=== PATIENT | male | born 1945 | race Caucasian/White ===

== ENCOUNTER 2017-05-25 10:49 | Inpatient (IN) | payer MEDICARE, BC ==
[2017-05-25] MEDS ORDERED: Sodium Chloride 0.9% 1,000 ML IV STA (11:48)
--- NOTE | 2017-05-25 12:02 | ED PDOC ---
Arrival/HPI - General Chief Complaint: Syncope Time Seen by Provider: 05/25/17 11:28 Historian: Patient, Spouse - History of Present Illness Narrative History of Present Illness (Text): 05/25/17 11:32 A 71 year old male, whose past medical history includes COPD (on 2.5 Liter of oxygen at home), Atrial fibrillation (on Coumadin and Digoxin), hypertension, pacemaker/AICD, and colon CA in remission, presents to the emergency department for evaluation of rectal bleeding for the past 3 days. Patient reports 4 days ago he was seen by his certified residential medication aide, who preformed a colonoscopy. Dr. Guido found polyps, which where removed and patient was instructed to hold on some of his pain medication. Patient reports that even he had back pain and without thinking he took his Naproxen that night. Patient has been off his coumadin the past two days. Patient notes the bleeding has been consistent for the past 3 days. Director Strategy was called who suggested to the patient come into the emergency department for further evaluation. Patient notes having bloody diarrhea, generalized weakness and lightheadedness. He states earlier today he was sleep on his couch and got up but felt dizzy and fell, hitting his head and sustained a small laceration the the left eye lid. Patient has some shortness of breath, consistent with baseline COPD but denies any fever, chills , abdominal pain, nausea, vomiting, or any other complaints at this time. Patient cannot recall when he last got a tetanus shot. PMD: Dr. Hamlin Time/Duration: Other (3 days) Symptom Onset: Sudden Symptom Course: Unchanged Quality: Other Activities at Onset: Rest Context: Home Past Medical History - Provider Review Nursing Documentation Reviewed: Yes - Cardiac Hx Cardiac Disorders: Yes Hx Hypertension: Yes Hx Pacemaker: Yes - Pulmonary Hx Respiratory Disorders: Yes Hx Chronic Obstructive Pulmonary Disease (COPD): Yes Hx Emphysema: Yes - Neurological Hx Neurological Disorder: No - HEENT Hx HEENT Disorder: No - Renal Hx Renal Disorder: No - Endocrine/Metabolic Hx Endocrine Disorders: No - Hematological/Oncological Hx Blood Disorders: No - Integumentary Hx Dermatological Disorder: No - Musculoskeletal/Rheumatological Hx Musculoskeletal Disorders: No - Gastrointestinal Hx Gastrointestinal Disorders: Yes - Genitourinary/Gynecological Hx Genitourinary Disorders: No - Psychiatric Hx Psychophysiologic Disorder: No Hx Substance Use: No - Surgical History Hx Cardiac Catheterization: Yes Hx Coronary Stent: Yes Other/Comment: colon resection/colonoscopy Family/Social History - Physician Review Nursing Documentation Reviewed: Yes Family/Social History: Unknown Family HX Smoking Status: Former Smoker Hx Alcohol Use: Yes ("twice per week") Hx Substance Use: No Allergies/Home Meds Allergies/Adverse Reactions: Allergies No Known Allergies Allergy (Verified 05/25/17 10:55) Home Medications: Home Meds Medication Instructions Recorded Confirmed Budesonide [Pulmicort Respules] 1 inh INH BID 05/25/17 05/25/17 Digoxin [Lanoxin] 0.25 mg PO DAILY 05/25/17 05/25/17 Dutasteride [Avodart] 0.5 mg PO DAILY 05/25/17 05/25/17 Fenofibrate [Fenofibrate] 54 mg PO DAILY 05/25/17 05/25/17 Formoterol Fumarate [Perforomist] 1 inh INH BID 05/25/17 05/25/17 Furosemide [Lasix] 40 mg PO DAILY 05/25/17 05/25/17 Metoprolol Tartrate [Lopressor] 25 mg PO DAILY 05/25/17 05/25/17 Simvastatin [Simvastatin] 40 mg PO DAILY 05/25/17 05/25/17 Tamsulosin [Flomax] 0.4 mg PO DAILY 05/25/17 05/25/17 Tiotropium [Spiriva] 1 inh INH DAILY 05/25/17 05/25/17 Warfarin [Coumadin] 1 mg PO .[id number] 05/25/17 05/25/17 Warfarin [Coumadin] 2 mg PO .MONFRI 05/25/17 05/25/17 Review of Systems - Physician Review All systems were reviewed & negative as marked: Yes - Review of Systems Constitutional: Fatigue. absent: Fevers Respiratory: SOB Cardiovascular: absent: Chest Pain Gastrointestinal: Diarrhea, Hematochezia. absent: Abdominal Pain, Constipation , Nausea, Vomiting Neurological: Other (lightheadedness) Physical Exam Vital Signs Reviewed: Yes Temperature: Afebrile Blood Pressure: Normal Pulse: Regular Respiratory Rate: Normal Appearance: Positive for: Well-Appearing, Non-Toxic, Comfortable Pain Distress: None Mental Status: Positive for: Alert and Oriented X 3 Finger Stick Blood Glucose: 149 - Systems Exam Head: Present: Normocephalic, Laceration (lateral left eye laceration approximately 1-2 cm ). No: Tenderness, Contusion Pupils: Present: PERRL Extroacular Muscles: Present: EOMI Conjunctiva: Present: Normal Mouth: Present: Moist Mucous Membranes Pharnyx: Present: Normal. No: ERYTHEMA, EXUDATE Neck: Present: Normal Range of Motion Respiratory/Chest: Present: Clear to Auscultation, Good Air Exchange, Decreased Breath Sounds (slightly decreased). No: Respiratory Distress, Accessory Muscle Use Cardiovascular: Present: Regular Rate and Rhythm, Normal S1, S2. No: Murmurs Abdomen: Present: Normal Bowel Sounds. No: Tenderness, Distention, Peritoneal Signs Rectal: Present: Gross Blood Back: Present: Normal Inspection Upper Extremity: Present: Normal Inspection. No: Cyanosis, Edema Lower Extremity: Present: Normal Inspection. No: Edema Neurological: Present: GCS=15, CN II-XII Intact, Speech Normal, Motor Func Grossly Intact Skin: Present: Warm, Dry, Normal Color. No: Rashes Psychiatric: Present: Alert, Oriented x 3, Normal Insight, Normal Concentration Medical Decision Making ED Course and Treatment: 05/25/17 11:32 Impression: A 71 year old male with rectal bleeding, starting two days post-polypectomy. Patient with syncopal episode this morning. Vitals are unremarkable. Differential Diagnosis included but are not limited to: GI bleed Plan: -- Head CT -- Chest X-ray -- Labs -- Urinalysis -- IV Fluids and TDAP Vaccine -- Reassess and disposition Progress Notes: 05/25/17 11:56 Case discussed with Rafa Bell, from [employer], who states he will come to the emergency department in 1-2 hours to investigate the pacemaker. 05/25/17 12:[address] Guido, who states to order a GI Bleeding Scan. 05/25/17 13:03 Rafa Bell present in emergency department. 05/25/17 14:49 Patient's Hgb is 11.4; EKG is abnormal but no old for comparison. Troponin is negative. No chest pain. 05/25/17 14:55 Patient will need observation on tele, bleeding scan results to be followed. Case discussed with Dr. Skinner, who is now following Dr. Hamlin's patients. Patient to be place on his service. - Lab Interpretations Lab Results: 05/25/17 12:00 05/25/17 12:00 Lab Results 05/25/17 13:00: Blood Type Confirm A POSITIVE 05/25/17 12:53: Urine Color Yellow, Urine Appearance Clear, Urine pH 6.0, Ur Specific [place] 1.020, Urine Protein Negative, Urine Glucose (UA) Negative, Urine Ketones Negative, Urine Blood Negative, Urine Nitrate Negative, Urine Bilirubin Negative, Urine Urobilinogen 0.2, Ur Leukocyte Esterase Trace H, Urine RBC 0 - 2, Urine WBC 2 - 5, Ur Epithelial Cells 0 - 2, Amorphous Sediment Few, Urine Bacteria Many 05/25/17 12:00: Digoxin < 0.4 L 05/25/17 12:00: Blood Type A POSITIVE, Antibody Screen Negative, Crossmatch See Detail, BBK History Checked No verified bt 05/25/17 12:00: Sodium 137, Potassium 4.1, Chloride 103, Carbon Dioxide 28, Anion Gap 10, BUN 21, Creatinine 1.0, Est GFR ( Amer) > 60, Est GFR (Non- Af Amer) > 60, Random Glucose 123 H, Calcium 9.1, Total Bilirubin 0.3, AST 25, ALT 26, Alkaline Phosphatase 32 L, Lactate Dehydrogenase 371, Total Creatine Kinase 65, Troponin I < 0.01, Total Protein 5.9, Albumin 3.3, Globulin 2.6, Albumin/Globulin Ratio 1.3 05/25/17 12:00: PT 14.8 H, INR 1.37 H, APTT 24.9 05/25/17 12:00: WBC 15.2 H, RBC 3.81, Hgb 11.4 L, Hct 33.7 L, MCV 88.5, MCH 29.9 , MCHC 33.8, RDW 13.8, Plt Count 227, MPV 9.2, Gran % 81.0 H, Lymph % (Auto) 12.1 L, [place] % (Auto) 6.3 H, Eos % (Auto) 0.3 L, Baso % (Auto) 0.3, Gran # 12.31 H, Lymph # 1.8, [place] # 1.0 H, Eos # 0.1, Baso # 0.04 I have reviewed the lab results: Yes - RAD Interpretation Radiology Orders: 05/25/17 11:46 CHEST PORTABLE [RAD] Stat 05/25/17 11:47 Brain [HEAD W/O CONTRAST] [CT] Stat 05/25/17 12:17 GI BLEEDING SCAN W/ FLOW [NM] Stat - EKG Interpretation EKG Interpretation (Text): 05/25/17 14:52 NSR @ 82 with NSIVCD with inferolateral T wave inversions, LBBB but no old for comparison; QRS is 128 - Medication Orders Current Medication Orders: Sodium Chloride (Sodium Chloride 0.9%) 1,000 mls @ 250 mls/hr IV .Q4H STA Stop: 05/25/17 15:47 Last Admin: 05/25/17 12:24 Dose: 250 mls/hr Polyethylene Glycol/Electrolytes (Golytely) 4,000 ml PO ONCE ONE Stop: 05/25/17 17:01 Discontinued Medications Tetanus/Reduced Diphtheria/Acell Pertussis (Boostrix Vaccine Inj) 0.5 ml IM .ONCE ONE Stop: 05/25/17 12:22 - Scribe Statement The provider has reviewed the documentation as recorded by the Tejaibcharlette Monsivais Provider Scribe Attestation: All medical record entries made by the Scribe were at my direction and personally dictated by me. I have reviewed the chart and agree that the record accurately reflects my personal performance of the history, physical exam, medical decision making, and the department course for this patient. I have also personally directed, reviewed, and agree with the discharge instructions and disposition. Disposition/Present on Arrival - Present on Arrival Any Indicators Present on Arrival: No History of DVT/PE: No History of Uncontrolled Diabetes: No Urinary Catheter: No History of Decub. Ulcer: No History Surgical Site Infection Following: None - Disposition Have Diagnosis and Disposition been Completed?: Yes Diagnosis: Syncope, Rectal bleeding Disposition: HOSPITALIZED Disposition Time: 14:40 Patient Plan: Observation, Telemetry Condition: FAIR Discharge Instructions (ExitCare): Syncope (ED) Referrals: Mauricio Hamlin Jr., MD [Primary Care Provider] - Follow up with primary
[2017-05-25] MEDS ORDERED: TDAP Vaccine 0.5 mL Syr IM ONE ×2 (12:21→18:30)
[2017-05-25 12:26] LABS: ADD MANUAL DIFF? NO
[2017-05-25 12:41] LABS: BASO # 0.04 K/mm3 (0.0-2.0); BASO % 0.3 % (0.0-3.0); EOS # 0.1 (0.0-0.7); EOS % 0.3 % (1.5-5.0); GRAN # 12.31 (1.4-6.5); HEMATOCRIT 33.7 % (42.0-52.0); LYMPH # 1.8 (1.2-3.4); LYMPH % 12.1 % (22.0-35.0); MEAN CELL VOLUME 88.5 fL (80.0-105.0); MEAN CORPUSCULAR HEMOGLOBIN 29.9 pg (25.0-35.0); MEAN CORPUSCULAR HGB CONC 33.8 g/dl (31.0-37.0); MEAN PLATELET VOLUME 9.2 fl (7.0-11.0); MONO % 6.3 % (1.0-6.0); PLATELET COUNT 227 10^3/uL (120.0-450.0); RED CELL DISTRIBUTION WIDTH 13.8 % (11.5-14.5); WHITE BLOOD COUNT 15.2 10^3/ul (4.5-11.0)
[2017-05-25 12:49] LABS: INR 1.37 (0.93-1.08); PARTIAL THROMBOPLASTIN TIME 24.9 Seconds (23.7-30.8)
[2017-05-25 12:53] LABS: ALB/GLOB RATIO 1.3 (1.1-1.8); ALKALINE PHOSPHATASE 32 U/L (38-133); ALT/SGPT 26 U/L (7-56); AST/SGOT 25 U/L (15-59); BILIRUBIN,TOTAL 0.3 mg/dL (0.2-1.3); BLOOD UREA NITROGEN 21 mg/dL (7-21); CALCIUM 9.1 mg/dL (8.4-10.5); CARBON DIOXIDE 28 mmol/L (21-33); CHLORIDE 103 mmol/L (98-107); GFR AFRICAN-AMERICAN > 60; GLUCOSE,RANDOM 123 mg/dL (70-110); POTASSIUM 4.1 mmol/L (3.6-5.0); SODIUM 137 mmol/L (132-148); TOTAL PROTEIN 5.9 g/dL (5.8-8.3)
[2017-05-25 12:56] LABS: URINE BILIRUBIN NEGATIVE (NEGATIVE); URINE BLOOD NEGATIVE (NEGATIVE); URINE GLUCOSE (UA) NEGATIVE (NEGATIVE); URINE KETONE NEGATIVE (NEGATIVE); URINE LEUKOCYTE ESTERASE TRACE Leu/uL (NEGATIVE); URINE PROTEIN NEGATIVE mg/dL (<30 mg/dL); URINE UROBILINOGEN 0.2 E.U./dL (<1 E.U./dL)
[2017-05-25 12:59] LABS: URINE APPEARANCE CLEAR (CLEAR); URINE COLOR YELLOW (YELLOW)
[2017-05-25 13:03] LABS: TROPONIN I < 0.01 ng/mL
[2017-05-25 13:08] LABS: URINE AMORPHOUS SEDIMENT FEW; URINE BACTERIA MANY (NEG); URINE EPITHELIAL CELLS 0 - 2 /hpf (0-5); URINE RBC 0 - 2 /hpf (0-2)
--- NOTE | 2017-05-25 16:01 | CT ---
PROCEDURE: CT HEAD WITHOUT CONTRAST. HISTORY: syncope; hit head; on coumadin COMPARISON: None available. TECHNIQUE: Axial computed tomography images were obtained through the head/brain without intravenous contrast. Radiation dose: Total exam DLP = 789 mGy-cm. This CT exam was performed using one or more of the following dose reduction techniques: Automated exposure control, adjustment of the mA and/or kV according to patient size, and/or use of iterative reconstruction technique. FINDINGS: HEMORRHAGE: No intracranial hemorrhage. BRAIN: No mass effect or edema. No atrophy or chronic microvascular ischemic changes. VENTRICLES: Unremarkable. No hydrocephalus. CALVARIUM: Unremarkable. PARANASAL SINUSES: Unremarkable as visualized. No significant inflammatory changes. MASTOID AIR CELLS: Unremarkable as visualized. No inflammatory changes. OTHER FINDINGS: None. IMPRESSION: No acute findings
--- NOTE | 2017-05-25 16:34 | NM ---
PROCEDURE: Gastrointestinal bleeding study HISTORY: lower GI Bleed post-polypectomy COMPARISON: Not available TECHNIQUE: 19.0 mCi of technetium 99 M ultra tagged 10 8 RBCs were administered intravenously. Sequential flow and static images were obtained up to 1 hour post administration. FINDINGS: There is focal activity in the right upper quadrant of the abdomen, likely in the hepatic flexure of the colon. This is seen to spread slightly along the expected course of the flexure, both proximally and distally. There is focal activity seen in the inferior pelvis. This is in the expected location of the bladder or rectosigmoid colon. This does not spread along the expected course of the sigmoid colon and may represent bladder activity. This should correlate with hematuria on catheterization. Please correlate. Alternatively, this may represent sigmoid colon activity. IMPRESSION: Abnormal activity in what is most likely the hepatic flexure of the colon. Abnormal activity in the pelvis which may correspond to bladder activity, versus rectosigmoid colon. Please correlate with bladder catheterization to determine if there is hematuria.
[2017-05-25] MEDS ORDERED: Peg-Electrolyte Oral Soln 4L (Golytely) PO ONE (17:00)
[2017-05-25] MEDS ORDERED: FENOFIBRATE 54 MG PO SCH (17:15)
--- NOTE | 2017-05-25 17:22 | RAD ---
HISTORY: syncope; generalized weakness COMPARISON: No prior. FINDINGS: LUNGS: There is an extensive lucency in the left upper lobe that is most likely due to an emphysematous bulla. There is no lung edge to suggest pneumothorax. There are no prior studies. There is linear apical scarring on the right. PLEURA: No significant pleural effusion identified, no pneumothorax apparent. CARDIOVASCULAR: Normal. OSSEOUS STRUCTURES: No significant abnormalities. VISUALIZED UPPER ABDOMEN: Normal. OTHER FINDINGS: None. IMPRESSION: There is an extensive lucency in the left upper lobe that is most likely due to an emphysematous bulla. There is no lung edge to suggest pneumothorax. There are no prior studies. There is linear apical scarring on the right.
[2017-05-25 17:37] LABS: CHOLESTEROL 119 mg/dL (130-200)
[2017-05-25] MEDS ORDERED: FORMOTEROL FUMARATE INH SCH (18:00)
[2017-05-25] MEDS ORDERED: Budesonide 0.5 mg/2 ml Inhal Susp UD INH SCH (18:00)
[2017-05-25] MEDS: Digoxin 250 mcg (0.25 mg) Tab PO SCH (19:12)
[2017-05-25] MEDS: Tiotropium 18 mcg Cap For Inhalation INH SCH (19:34)
[2017-05-25] MEDS: Budesonide 0.25 mg/2 ml Inhal Susp UD IH SCH (19:52)
[2017-05-25 20:08] LABS: ADD MANUAL DIFF? NO
[2017-05-25 20:10] LABS: BASO # 0.04 K/mm3 (0.0-2.0); BASO % 0.2 % (0.0-3.0); EOS # 0.1 (0.0-0.7); EOS % 0.5 % (1.5-5.0); GRAN # 13.24 (1.4-6.5); GRAN % 77.5 % (50.0-68.0); HEMATOCRIT 30.2 % (42.0-52.0); LYMPH # 2.8 (1.2-3.4); LYMPH % 16.4 % (22.0-35.0); MEAN CELL VOLUME 88.3 fL (80.0-105.0); MEAN CORPUSCULAR HEMOGLOBIN 29.8 pg (25.0-35.0); MEAN CORPUSCULAR HGB CONC 33.8 g/dl (31.0-37.0); MEAN PLATELET VOLUME 8.9 fl (7.0-11.0); MONO # 0.9 (0.1-0.6); MONO % 5.4 % (1.0-6.0); PLATELET COUNT 246 10^3/uL (120.0-450.0); RED CELL DISTRIBUTION WIDTH 13.8 % (11.5-14.5); WHITE BLOOD COUNT 17.1 10^3/ul (4.5-11.0)
[2017-05-25 21:45] VITALS: BMI 27.3
[2017-05-25] MEDS ORDERED: Pneumococcal 23-Valent Vaccine IM ONE (21:45)
--- NOTE | 2017-05-25 22:13 | CARD ---
APPROVED REPORT EKG Measurement Heart [id number] <Conclusion> Normal sinus rhythm Nonspecific intraventricular block T wave abnormality, consider inferolateral ischemia Abnormal ECG
[2017-05-26 07:15] LABS: ADD MANUAL DIFF? NO
[2017-05-26 07:28] LABS: BASO # 0.03 K/mm3 (0.0-2.0); BASO % 0.2 % (0.0-3.0); EOS # 0.1 (0.0-0.7); EOS % 0.9 % (1.5-5.0); GRAN # 9.73 (1.4-6.5); GRAN % 75.1 % (50.0-68.0); LYMPH # 2.1 (1.2-3.4); LYMPH % 16.1 % (22.0-35.0); MEAN CELL VOLUME 87.9 fL (80.0-105.0); MEAN CORPUSCULAR HEMOGLOBIN 29.4 pg (25.0-35.0); MEAN CORPUSCULAR HGB CONC 33.5 g/dl (31.0-37.0); MEAN PLATELET VOLUME 8.9 fl (7.0-11.0); MONO % 7.7 % (1.0-6.0); PLATELET COUNT 195 10^3/uL (120.0-450.0); RED CELL DISTRIBUTION WIDTH 13.9 % (11.5-14.5)
[2017-05-26 07:32] LABS: INR 1.25 (0.93-1.08); PARTIAL THROMBOPLASTIN TIME 23.8 Seconds (23.7-30.8)
[2017-05-26 07:33] LABS: ALB/GLOB RATIO 1.2 (1.1-1.8); ALKALINE PHOSPHATASE 24 U/L (38-133); ALT/SGPT 24 U/L (7-56); AST/SGOT 25 U/L (15-59); BILIRUBIN,DIRECT 0.2 mg/dL (0.0-0.4); BILIRUBIN,TOTAL 0.5 mg/dL (0.2-1.3); BLOOD UREA NITROGEN 16 mg/dL (7-21); CALCIUM 8.3 mg/dL (8.4-10.5); CARBON DIOXIDE 28 mmol/L (21-33); CHLORIDE 106 mmol/L (98-107); GFR AFRICAN-AMERICAN > 60; GLUCOSE,RANDOM 91 mg/dL (70-110); MAGNESIUM 1.5 mg/dL (1.7-2.2); POTASSIUM 4.2 mmol/L (3.6-5.0); SODIUM 139 mmol/L (132-148); TOTAL PROTEIN 4.7 g/dL (5.8-8.3)
[2017-05-26] MEDS: Arformoterol 15 mcg/2 ml Inh Sol IH SCH ×2 (07:45→19:53)
[2017-05-26] MEDS ORDERED: Sodium Chloride 0.9% 1,000 ML IV SCH (07:45)
[2017-05-26] MEDS: Levalbuterol 1.25 MG/3 ML Inhal Soln UD IH SCH ×3 (07:45→19:53)
[2017-05-26] MEDS: Budesonide 0.25 mg/2 ml Inhal Susp UD IH SCH ×2 (07:46→19:53)
[2017-05-26 07:54] LABS: HEMATOCRIT 23.9 % (42.0-52.0)
--- NOTE | 2017-05-26 08:07 | CP.PCM.CON ---
History of Present Illness - History of Present Illness History of Present Illness: GI consult for Dr. Guido A 71 year old male, whose past medical history includes COPD (on 2.5 Liter of oxygen at home), Atrial fibrillation (on Coumadin and Digoxin), hypertension, pacemaker/AICD, and colon CA in remission, presents to the emergency department for evaluation of rectal bleeding for the past 4 days since Wednesday. Patient had colonoscopy and polypectomy on Wednesday (POD5). Pt started Coumadin same day and discontinued 4 days ago when he started bleeding. Patient reports that he had back pain and took Naproxen on Wednesday. Patient notes the bleeding has been consistent for the past 4 days. Patient notes having 5,6 bouts of bloody diarrhea a day, generalized weakness and lightheadedness. He states felt dizzy and fell, hitting his head and sustained a small laceration the the left eye lid. Patient has some shortness of breath, consistent with baseline COPD but denies any fever, chills, abdominal pain, nausea, vomiting, or any other complaints at this time. Patient cannot recall when he last got a tetanus shot. CT of the head was negative for acute process and bleeding scan shows blood on hepatic flexure and pelvic/sigmoid area. INR is 1.25 today and Hgb decreased to 8 from 10 yesterday. Pt is receiving PRBC and scheduled for colonoscopy today. PMH: COPD, polyps, Afib on coumadin, Colon CA. PMD: Dr. Hamlin Review of Systems - Review of Systems Review of Systems: See HPI Past Patient History - Past Social History Smoking Status: Former Smoker - CARDIAC Hx Cardiac Disorders: Yes Hx Cardia Arrhythmia: Yes (a fib) Hx Hypertension: Yes Hx Pacemaker: Yes Hx Peripheral Edema: Yes (ble +1) - PULMONARY Hx Respiratory Disorders: Yes Hx Chronic Obstructive Pulmonary Disease (COPD): Yes (home o2) Hx Emphysema: Yes - NEUROLOGICAL Hx Neurological Disorder: No - HEENT Hx HEENT Problems: No - RENAL Hx Chronic Kidney Disease: No - ENDOCRINE/METABOLIC Hx Endocrine Disorders: No - HEMATOLOGICAL/ONCOLOGICAL Hx Cancer: Yes (colon ca dx 2000/colon resection) - INTEGUMENTARY Other/Comment: laceration left eyelid - MUSCULOSKELETAL/RHEUMATOLOGICAL Hx Musculoskeletal Disorders: Yes (joint pain) Hx Falls: Yes (syncopal episode today fell hit head) - GASTROINTESTINAL Hx Gastrointestinal Disorders: Yes - GENITOURINARY/GYNECOLOGICAL Hx Prostate Problems: Yes (enlarged on flomax) - PSYCHIATRIC Hx Psychophysiologic Disorder: No Hx Substance Use: No - SURGICAL HISTORY Hx Cardiac Catheterization: Yes Hx Coronary Stent: Yes Other/Comment: colon resection/colonoscopy 4 days ago polyps found and removed, abd hernia repair Meds Allergies/Adverse Reactions: Allergies Allergy/AdvReac Type Severity Reaction Status Date / Time No Known Allergies Allergy Verified 05/25/17 10:55 - Medications Medications: Current Medications Arformoterol Tartrate (Brovana) 15 mcg IH [id number] [facility] Last Admin: 05/26/17 07:45 Dose: 15 mcg Atorvastatin Calcium (Lipitor) 20 mg PO DAILY [facility] Budesonide (Pulmicort Respules) 0.25 mg IH BIDRESP [facility] Last Admin: 05/26/17 07:46 Dose: 0.25 mg Digoxin (Lanoxin) 0.25 mg PO DAILY [facility] Last Admin: 05/25/17 19:12 Dose: 0.25 mg Fenofibrate (Tricor) 48 mg PO DAILY [facility] Sodium Chloride (Sodium Chloride 0.9%) 1,000 mls @ 80 mls/hr IV .[id number] [facility] Metronidazole (Flagyl) 500 mg in 100 mls @ 100 mls/hr IVPB Q8 [facility] PRN Reason: Protocol Piperacillin Sod/Tazobactam Sod (Zosyn 3.375 In Ns 100ml) 100 mls @ 200 mls/hr IVPB Q8H [facility] PRN Reason: Protocol Stop: 06/02/17 08:14 Magnesium Sulfate 2 gm/ Sodium (Chloride) 104 mls @ 102 mls/hr IVPB Q3H [facility] Stop: 05/26/17 11:47 Levalbuterol HCl (Xopenex) 1.25 mg IH [id number] [facility] Last Admin: 05/26/17 07:45 Dose: 1.25 mg Metoprolol Tartrate (Lopressor) 25 mg PO DAILY [facility] Last Admin: 05/25/17 19:11 Dose: 25 mg Dutasteride [Avodart (] 0.5 Mg) 0.5 mg PO DAILY [facility] Last Admin: 05/25/17 19:12 Dose: Not Given Pantoprazole Sodium (Protonix Inj) 40 mg IVP Q12 [facility] Last Admin: 05/25/17 22:35 Dose: 40 mg Tamsulosin HCl (Flomax) 0.4 mg PO DAILY [facility] Last Admin: 05/25/17 19:12 Dose: 0.4 mg Tiotropium [employer] (Spiriva) 18 mcg INH DAILY [facility] Last Admin: 05/25/17 19:34 Dose: 18 mcg Physical Exam - Constitutional Appears: Non-toxic, No Acute Distress - Head Exam Head Exam: NORMOCEPHALIC Additional comments: L eye is swollen and has echymosis . MIld abrasion - Eye Exam Eye Exam: EOMI, PERRL. absent: Conjunctival injection, Scleral icterus Pupil Exam: NORMAL ACCOMODATION, PERRL - ENT Exam ENT Exam: Mucous Membranes Moist, Normal Exam - Neck Exam Neck exam: Positive for: Normal Inspection - Respiratory Exam Respiratory Exam: absent: Accessory Muscle Use, Respiratory Distress - Cardiovascular Exam Cardiovascular Exam: REGULAR RHYTHM - GI/Abdominal Exam GI & Abdominal Exam: Normal Bowel Sounds, Soft. absent: Distended, Firm, Guarding, Hernia, Pulsatile Mass, Rebound, Rigid, Tenderness - Extremities Exam Extremities exam: Positive for: full ROM, normal capillary refill, tenderness, pedal pulses present - Back Exam Back exam: NORMAL INSPECTION - Neurological Exam Neurological exam: Alert, CN II-XII Intact, Normal Gait, Oriented x3, Reflexes Normal - Psychiatric Exam Psychiatric exam: Normal Affect, Normal Mood - Skin Skin Exam: Dry, Erythema, Intact, Warm Results - Vital Signs Recent Vital Signs: Last Vital Signs Temp 97.8 F 05/26/17 06:00 Pulse 89 05/26/17 06:00 Resp 20 05/26/17 06:00 BP 112/64 05/26/17 06:00 Pulse Ox 99 05/26/17 06:00 - Labs Result Diagrams: 05/26/17 07:00 05/26/17 07:00 Labs: Laboratory Results - last 24 hr 05/25/17 05/25/17 05/25/17 17:14 17:14 20:00 WBC 17.1 H RBC 3.42 L Hgb 10.2 L Hct 30.2 L MCV 88.3 MCH 29.8 MCHC 33.8 RDW 13.8 Plt Count 246 MPV 8.9 Gran % 77.5 H Lymph % (Auto) 16.4 L [place] % (Auto) 5.4 Eos % (Auto) 0.5 L Baso % (Auto) 0.2 Gran # 13.24 H Lymph # 2.8 [place] # 0.9 H Eos # 0.1 Baso # 0.04 PT INR APTT Sodium Potassium Chloride Carbon Dioxide Anion Gap BUN Creatinine Est GFR ( Amer) Est GFR (Non-Af Amer) Random Glucose Calcium Magnesium Total Bilirubin Direct Bilirubin AST ALT Alkaline Phosphatase Total Protein Albumin Globulin Albumin/Globulin Ratio Triglycerides 129 Cholesterol 119 L LDL Cholesterol Direct 78 HDL Cholesterol 26 L Prostate Specific Ag 1.8 05/26/17 05/26/17 05/26/17 07:00 07:00 07:00 WBC 13.0 H D RBC 2.72 L Hgb 8.0 L D Hct 23.9 L MCV 87.9 MCH 29.4 MCHC 33.5 RDW 13.9 Plt Count 195 MPV 8.9 Gran % 75.1 H Lymph % (Auto) 16.1 L [place] % (Auto) 7.7 H Eos % (Auto) 0.9 L Baso % (Auto) 0.2 Gran # 9.73 H Lymph # 2.1 [place] # 1.0 H Eos # 0.1 Baso # 0.03 PT 13.5 H INR 1.25 H APTT 23.8 Sodium 139 Potassium 4.2 Chloride 106 Carbon Dioxide 28 Anion Gap 9 L BUN 16 Creatinine 0.9 Est GFR ( Amer) > 60 Est GFR (Non-Af Amer) > 60 Random Glucose 91 Calcium 8.3 L Magnesium 1.5 L Total Bilirubin 0.5 Direct Bilirubin 0.2 AST 25 ALT 24 Alkaline Phosphatase 24 L Total Protein 4.7 L Albumin 2.6 L Globulin 2.2 Albumin/Globulin Ratio 1.2 Triglycerides Cholesterol LDL Cholesterol Direct HDL Cholesterol Prostate Specific Ag Assessment & Plan - Assessment and Plan (Free Text) Assessment: Lower GI bleed, s/p colonoscopy and polypectomy s/p fall on Coumadin for Afib INR 1.25 Hgb 8 Bleeding scan active bleeding on hepatic flexure and pelvis/sigmoid area -Colonoscopy today -PRBC PRN -Monitor H/H -Hold Coumadin -Medical management PEYTON Guido
[2017-05-26 08:50] LABS: IRON 36 ug/dL (45-180)
[2017-05-26 09:00] LABS: TROPONIN I 0.01 ng/mL
[2017-05-26 09:16] LABS: FREE T4 1.31 ng/dL (0.78-2.19); T4 8.9 ug/dL (5.5-11.0)
[2017-05-26 09:29] LABS: THYROID STIMULATING HORMONE 1.93 mIU/mL (0.46-4.68)
--- NOTE | 2017-05-26 10:16 | CARD ---
APPROVED REPORT EKG Measurement Heart [id number] [place] [id number] <Conclusion> Normal sinus rhythm Nonspecific intraventricular block Cannot rule out Anterior infarct, age undetermined T wave abnormality, consider inferolateral ischemia Abnormal ECG
[2017-05-26] MEDS ORDERED: Midazolam 2 MG/2 ML VIAL ONE (10:41)
[2017-05-26] MEDS ORDERED: Etomidate 20 mg/10ml Inj IV ONE (11:04)
[2017-05-26] MEDS: metroNIDAZOLE IV 500 mg/100 ml 500 MG/100 ML BAG IVPB SCH ×3 (11:55→21:34)
[2017-05-26] MEDS: Piperacillin/Tazobact 3.375 gm 100 ML IVPB SCH ×2 (11:57→17:45)
[2017-05-26 12:52] LABS: FOLATE > 20.0 ng/mL
[2017-05-26] MEDS: Digoxin 250 mcg (0.25 mg) Tab PO SCH (13:39)
[2017-05-26] MEDS: Tiotropium 18 mcg Cap For Inhalation INH SCH (13:40)
--- NOTE | 2017-05-26 13:54 | CP.PCM.PN ---
Subjective - Date & Time of Evaluation Date of Evaluation: 05/26/17 Time of Evaluation: 13:00 - Subjective Subjective: SEEN LYING IN BED IN 265-1 AT BED SIDE. PRBC TRANSFUSION IN PROGRESS S/P COLONSCOPY Objective - Vital Signs/Intake and Output Vital Signs (last 24 hours): Temp Pulse Resp BP Pulse Ox 97.6 F 100 H 18 129/95 H 99 05/26/17 13:28 05/26/17 13:28 05/26/17 13:28 05/26/17 13:28 05/26/17 11:50 Intake and Output: 05/26/17 05/26/17 06:59 18:59 Intake Total 300 25 Output Total 12 Balance 288 25 - Medications Medications: Current Medications Arformoterol Tartrate (Brovana) 15 mcg [facility] [id number] [facility] Last Admin: 05/26/17 07:45 Dose: 15 mcg Atorvastatin Calcium (Lipitor) 20 mg PO DAILY [facility] Last Admin: 05/26/17 13:39 Dose: Not Given Budesonide (Pulmicort Respules) 0.25 mg IH BIDRESP [facility] Last Admin: 05/26/17 07:46 Dose: 0.25 mg Cyanocobalamin (Vitamin B12 1000 Mcg/Ml Inj) 1,000 mcg IM DAILY [facility] Stop: 06/04/17 10:01 Digoxin (Lanoxin) 0.25 mg PO DAILY [facility] Last Admin: 05/26/17 13:39 Dose: Not Given Fenofibrate (Tricor) 48 mg PO DAILY [facility] Last Admin: 05/26/17 13:40 Dose: Not Given Metronidazole (Flagyl) 500 mg in 100 mls @ 100 mls/hr IVPB Q8 [facility] PRN Reason: Protocol Last Admin: 05/26/17 11:55 Dose: Not Given Piperacillin Sod/Tazobactam Sod (Zosyn 3.375 In Ns 100ml) 100 mls @ 200 mls/hr IVPB Q8H [facility] PRN Reason: Protocol Stop: 06/02/17 08:14 Last Admin: 05/26/17 11:57 Dose: Not Given Sodium Chloride (Sodium Chloride 0.9%) 1,000 mls @ 100 mls/hr IV .Q10H [facility] Iron Sucrose 200 mg/ Sodium (Chloride) 110 mls @ 110 mls/hr IVPB DAILY [facility] Stop: 05/28/17 10:59 Levalbuterol HCl (Xopenex) 1.25 mg IH [id number] [facility] Last Admin: 05/26/17 07:45 Dose: 1.25 mg Metoprolol Tartrate (Lopressor) 25 mg PO DAILY [facility] Last Admin: 05/26/17 13:39 Dose: Not Given Dutasteride [Avodart (] 0.5 Mg) 0.5 mg PO DAILY [facility] Last Admin: 05/26/17 13:39 Dose: Not Given Pantoprazole Sodium (Protonix Inj) 40 mg IVP Q12 [facility] Last Admin: 05/26/17 13:40 Dose: Not Given Tamsulosin HCl (Flomax) 0.4 mg PO DAILY [facility] Last Admin: 05/26/17 13:39 Dose: Not Given Tiotropium [place] (Spiriva) 18 mcg INH DAILY [facility] Last Admin: 05/26/17 13:40 Dose: Not Given - Labs Labs: 05/26/17 07:00 05/26/17 07:00 PT 13.5 Seconds (9.9-11.8) H 05/26/17 07:00 INR 1.25 (0.93-1.08) H 05/26/17 07:00 APTT 23.8 Seconds (23.7-30.8) 05/26/17 07:00 - Constitutional Appears: Non-toxic, No Acute Distress - Head Exam Head Exam: ATRAUMATIC, NORMAL INSPECTION, NORMOCEPHALIC - Eye Exam Eye Exam: EOMI, Periorbital swelling - ENT Exam ENT Exam: Normal Exam - Neck Exam Neck Exam: Full ROM, Normal Inspection - Cardiovascular Exam Cardiovascular Exam: REGULAR RHYTHM - GI/Abdominal Exam GI & Abdominal Exam: Soft, Normal Bowel Sounds - Rectal Exam Rectal Exam: Bloody Stool - Extremities Exam Extremities Exam: Normal Capillary Refill, Normal Inspection - Back Exam Back Exam: NORMAL INSPECTION - Neurological Exam Neurological Exam: Alert, Awake, CN II-XII Intact, Normal Gait, Oriented x3 Neuro motor strength exam: Left Upper Extremity: 5, Right Upper Extremity: 5, Left Lower Extremity: 5, Right Lower Extremity: 5 - Psychiatric Exam Psychiatric exam: Normal Affect, Normal Mood - Skin Skin Exam: Abrasion Additional comments: LEFT UPPER EYELID PUFFINESS/LACERATION Assessment and Plan - Assessment and Plan (Free Text) Assessment: A/P; SYNCOPE ETIOLOGY UNDETERMINED LGIB ACUTE BLOOD LOSS ANEMIA S/P COLONSCOPY SIGMOID AND 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 PLAN PER ORDERS ALL DETAILS EXPLAINED TO PATIENT AND AT LENGTH, ALL QUESTIONS AND CONCERNED ANSWERED. WILL AWAIT RESULTS OF FURTHER DIAGNOSTICS TESTING AND CARDIOLOGY, NEUROLOGY AND GI RECOMMENDATIONS. 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 PLAN PER ORDERS ALL DETAILS EXPLAINED TO PATIENT AND AT LENGTH, ALL QUESTIONS AND CONCERNED ANSWERED. WILL AWAIT RESULTS OF FURTHER DIAGNOSTICS TESTING AND CARDIOLOGY, NEUROLOGY AND GI RECOMMENDATIONS.
[2017-05-26] MEDS: Sodium Chloride 0.9% 1,000 ML IV SCH ×2 (16:43→21:37)
[2017-05-26] MEDS: Magnesium Sulfate 2 GM in Sodium Chloride 0.9% 100 ML IVPB SCH ×2 (16:56→17:47)
[2017-05-26 18:22] LABS: HEMATOCRIT 29.3 % (42.0-52.0); MEAN CORPUSCULAR HEMOGLOBIN 30.3 pg (25.0-35.0); MEAN CORPUSCULAR HGB CONC 34.5 g/dl (31.0-37.0); RED CELL DISTRIBUTION WIDTH 13.9 % (11.5-14.5); WHITE BLOOD COUNT 11.8 10^3/ul (4.5-11.0)
[2017-05-27] MEDS: Piperacillin/Tazobact 3.375 gm 100 ML IVPB SCH ×4 (00:35→22:47)
[2017-05-27] MEDS: Levalbuterol 1.25 MG/3 ML Inhal Soln UD IH SCH ×4 (02:02→19:50)
[2017-05-27] MEDS: metroNIDAZOLE IV 500 mg/100 ml 500 MG/100 ML BAG IVPB SCH ×3 (05:31→21:39)
[2017-05-27 06:23] LABS: ADD MANUAL DIFF? NO
[2017-05-27 06:46] LABS: ALKALINE PHOSPHATASE 26 U/L (38-133); ALT/SGPT 26 U/L (7-56); AST/SGOT 20 U/L (15-59); BILIRUBIN,DIRECT 0.1 mg/dL (0.0-0.4); BILIRUBIN,TOTAL 0.7 mg/dL (0.2-1.3); BLOOD UREA NITROGEN 10 mg/dL (7-21); CALCIUM 7.7 mg/dL (8.4-10.5); CARBON DIOXIDE 27 mmol/L (21-33); CHLORIDE 110 mmol/L (98-107); GFR AFRICAN-AMERICAN > 60; GLUCOSE,RANDOM 80 mg/dL (70-110); MAGNESIUM 2.2 mg/dL (1.7-2.2); POTASSIUM 4.1 mmol/L (3.6-5.0); SODIUM 140 mmol/L (132-148); TOTAL PROTEIN 4.4 g/dL (5.8-8.3)
[2017-05-27 06:56] LABS: BASO # 0.03 K/mm3 (0.0-2.0); BASO % 0.3 % (0.0-3.0); EOS # 0.3 (0.0-0.7); EOS % 2.9 % (1.5-5.0); GRAN # 7.43 (1.4-6.5); GRAN % 78.3 % (50.0-68.0); HEMATOCRIT 25.6 % (42.0-52.0); LYMPH # 1.2 (1.2-3.4); LYMPH % 12.6 % (22.0-35.0); MEAN CORPUSCULAR HEMOGLOBIN 30.2 pg (25.0-35.0); MEAN CORPUSCULAR HGB CONC 34.4 g/dl (31.0-37.0); MONO # 0.6 (0.1-0.6); MONO % 5.9 % (1.0-6.0); PLATELET COUNT 183 10^3/uL (120.0-450.0); RED CELL DISTRIBUTION WIDTH 14.3 % (11.5-14.5); WHITE BLOOD COUNT 9.5 10^3/ul (4.5-11.0)
[2017-05-27] MEDS: Arformoterol 15 mcg/2 ml Inh Sol IH SCH ×2 (07:13→19:49)
[2017-05-27] MEDS: Budesonide 0.25 mg/2 ml Inhal Susp UD IH SCH ×2 (07:13→19:49)
[2017-05-27] MEDS: Digoxin 250 mcg (0.25 mg) Tab PO SCH (09:16)
[2017-05-27] MEDS: Tiotropium 18 mcg Cap For Inhalation INH SCH (09:17)
--- NOTE | 2017-05-27 10:28 | CP.PCM.PN ---
Subjective - Date & Time of Evaluation Date of Evaluation: 05/27/17 Time of Evaluation: 10:00 - Subjective Subjective: SEEN IN ECHO LAB LYING IN BED DENIES BLEEDING Objective - Vital Signs/Intake and Output Vital Signs (last 24 hours): Temp Pulse Resp BP Pulse Ox 97.9 F 67 20 112/61 94 L 05/27/17 06:00 05/27/17 09:15 05/27/17 06:00 05/27/17 09:15 05/27/17 06:00 Intake and Output: 05/27/17 05/27/17 06:59 18:59 Intake Total 1220 Balance 1220 - Medications Medications: Current Medications Arformoterol Tartrate (Brovana) 15 mcg IH [id number] [facility] Last Admin: 05/27/17 07:13 Dose: 15 mcg Atorvastatin Calcium (Lipitor) 20 mg PO DAILY [facility] Last Admin: 05/27/17 09:16 Dose: 20 mg Budesonide (Pulmicort Respules) 0.25 mg IH BIDRESP [facility] Last Admin: 05/27/17 07:13 Dose: 0.25 mg Cyanocobalamin (Vitamin B12 1000 Mcg/Ml Inj) 1,000 mcg IM DAILY [facility] Stop: 06/04/17 10:01 Last Admin: 05/27/17 09:15 Dose: 1,000 mcg Digoxin (Lanoxin) 0.25 mg PO DAILY [facility] Last Admin: 05/27/17 09:16 Dose: 0.25 mg Diphenhydramine HCl (Benadryl) 25 mg IVP Q12 [facility] Stop: 05/27/17 22:01 Fenofibrate (Tricor) 48 mg PO DAILY [facility] Last Admin: 05/27/17 09:17 Dose: 48 mg Furosemide (Lasix) 40 mg IVP Q12 [facility] Stop: 05/27/17 22:01 Metronidazole (Flagyl) 500 mg in 100 mls @ 100 mls/hr IVPB Q8 [facility] PRN Reason: Protocol Last Admin: 05/27/17 05:31 Dose: 100 mls/hr Piperacillin Sod/Tazobactam Sod (Zosyn 3.375 In Ns 100ml) 100 mls @ 200 mls/hr IVPB Q8H [facility] PRN Reason: Protocol Stop: 06/02/17 08:14 Last Admin: 05/27/17 08:24 Dose: 200 mls/hr Sodium Chloride (Sodium Chloride 0.9%) 1,000 mls @ 100 mls/hr IV .Q10H [facility] Last Admin: 05/26/17 21:37 Dose: 100 mls/hr Iron Sucrose 200 mg/ Sodium (Chloride) 110 mls @ 110 mls/hr IVPB DAILY [facility] Stop: 05/28/17 10:59 Last Admin: 05/27/17 09:14 Dose: 110 mls/hr Levalbuterol HCl (Xopenex) 1.25 mg IH [id number] [facility] Last Admin: 05/27/17 07:13 Dose: 1.25 mg Metoprolol Tartrate (Lopressor) 25 mg PO DAILY [facility] Last Admin: 05/27/17 09:15 Dose: 25 mg Dutasteride [Avodart (] 0.5 Mg) 0.5 mg PO DAILY [facility] Last Admin: 05/27/17 09:17 Dose: Not Given Pantoprazole Sodium (Protonix Inj) 40 mg IVP Q12 [facility] Last Admin: 05/27/17 09:14 Dose: 40 mg Tamsulosin HCl (Flomax) 0.4 mg PO DAILY [facility] Last Admin: 05/27/17 09:17 Dose: 0.4 mg Tiotropium [place] (Spiriva) 18 mcg INH DAILY [facility] Last Admin: 05/27/17 09:17 Dose: 18 mcg - Labs Labs: 05/27/17 05:36 05/27/17 05:30 PT 13.5 Seconds (9.9-11.8) H 05/26/17 07:00 INR 1.25 (0.93-1.08) H 05/26/17 07:00 APTT 23.8 Seconds (23.7-30.8) 05/26/17 07:00 - Additional Findings Additional findings: - Medications Medications: Current Medications Arformoterol Tartrate (Brovana) 15 mcg IH [id number] [facility] Last Admin: 05/26/17 07:45 Dose: 15 mcg Atorvastatin Calcium (Lipitor) 20 mg PO DAILY [facility] Last Admin: 05/26/17 13:39 Dose: Not Given Budesonide (Pulmicort Respules) 0.25 mg IH BIDRESP [facility] Last Admin: 05/26/17 07:46 Dose: 0.25 mg Cyanocobalamin (Vitamin B12 1000 Mcg/Ml Inj) 1,000 mcg IM DAILY [facility] Stop: 06/04/17 10:01 Digoxin (Lanoxin) 0.25 mg PO DAILY [facility] Last Admin: 05/26/17 13:39 Dose: Not Given Fenofibrate (Tricor) 48 mg PO DAILY [facility] Last Admin: 05/26/17 13:40 Dose: Not Given Metronidazole (Flagyl) 500 mg in 100 mls @ 100 mls/hr IVPB Q8 [facility] PRN Reason: Protocol Last Admin: 05/26/17 11:55 Dose: Not Given Piperacillin Sod/Tazobactam Sod (Zosyn 3.375 In Ns 100ml) 100 mls @ 200 mls/hr IVPB Q8H [facility] PRN Reason: Protocol Stop: 06/02/17 08:14 Last Admin: 05/26/17 11:57 Dose: Not Given Sodium Chloride (Sodium Chloride 0.9%) 1,000 mls @ 100 mls/hr IV .Q10H [facility] Iron Sucrose 200 mg/ Sodium (Chloride) 110 mls @ 110 mls/hr IVPB DAILY [facility] Stop: 05/28/17 10:59 Levalbuterol HCl (Xopenex) 1.25 mg IH [id number] [facility] Last Admin: 05/26/17 07:45 Dose: 1.25 mg Metoprolol Tartrate (Lopressor) 25 mg PO DAILY [facility] Last Admin: 05/26/17 13:39 Dose: Not Given Dutasteride [Avodart (] 0.5 Mg) 0.5 mg PO DAILY [facility] Last Admin: 05/26/17 13:39 Dose: Not Given Pantoprazole Sodium (Protonix Inj) 40 mg IVP Q12 [facility] Last Admin: 05/26/17 13:40 Dose: Not Given Tamsulosin HCl (Flomax) 0.4 mg PO DAILY [facility] Last Admin: 05/26/17 13:39 Dose: Not Given Tiotropium [place] (Spiriva) 18 mcg INH DAILY [facility] Last Admin: 05/26/17 13:40 Dose: Not Given - Labs Labs: 05/26/17 07:00 05/26/17 07:00 PT 13.5 Seconds (9.9-11.8) H 05/26/17 07:00 INR 1.25 (0.93-1.08) H 05/26/17 07:00 APTT 23.8 Seconds (23.7-30.8) 05/26/17 07:00 - Constitutional Appears: Non-toxic, No Acute Distress - Head Exam Head Exam: ATRAUMATIC, NORMAL INSPECTION, NORMOCEPHALIC - Eye Exam Eye Exam: EOMI, Periorbital swelling - ENT Exam ENT Exam: Normal Exam - Neck Exam Neck Exam: Full ROM, Normal Inspection - Cardiovascular Exam Cardiovascular Exam: REGULAR RHYTHM - GI/Abdominal Exam GI & Abdominal Exam: Soft, Normal Bowel Sounds - Rectal Exam Rectal Exam: Bloody Stool - Extremities Exam Extremities Exam: Normal Capillary Refill, Normal Inspection - Back Exam Back Exam: NORMAL INSPECTION - Neurological Exam Neurological Exam: Alert, Awake, CN II-XII Intact, Normal Gait, Oriented x3 Neuro motor strength exam: Left Upper Extremity: 5, Right Upper Extremity: 5, Left Lower Extremity: 5, Right Lower Extremity: 5 - Psychiatric Exam Psychiatric exam: Normal Affect, Normal Mood - Skin Skin Exam: Abrasion Additional comments: LEFT UPPER EYELID PUFFINESS/LACERATION Assessment and Plan - Assessment and Plan (Free Text) Assessment: A/P; SYNCOPE ETIOLOGY UNDETERMINED LGIB ACUTE BLOOD LOSS ANEMIA S/P COLONSCOPY SIGMOID AND 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 PLAN PER ORDERS ALL DETAILS EXPLAINED TO PATIENT AND AT LENGTH, ALL QUESTIONS AND CONCERNED ANSWERED. WILL AWAIT RESULTS OF FURTHER DIAGNOSTICS TESTING AND CARDIOLOGY, NEUROLOGY AND GI RECOMMENDATIONS. 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 PLAN PER ORDERS ALL DETAILS EXPLAINED TO PATIENT AND AT LENGTH, ALL QUESTIONS AND CONCERNED ANSWERED. WILL AWAIT RESULTS OF FURTHER DIAGNOSTICS TESTING AND CARDIOLOGY, NEUROLOGY AND GI RECOMMENDATIONS. Assessment and Plan - Assessment and Plan (Free Text) Assessment: - Medications Medications: Current Medications Arformoterol Tartrate (Brovana) 15 mcg IH [id number] [facility] Last Admin: 05/26/17 07:45 Dose: 15 mcg Atorvastatin Calcium (Lipitor) 20 mg PO DAILY [facility] Last Admin: 05/26/17 13:39 Dose: Not Given Budesonide (Pulmicort Respules) 0.25 mg IH BIDRESP [facility] Last Admin: 05/26/17 07:46 Dose: 0.25 mg Cyanocobalamin (Vitamin B12 1000 Mcg/Ml Inj) 1,000 mcg IM DAILY [facility] Stop: 06/04/17 10:01 Digoxin (Lanoxin) 0.25 mg PO DAILY [facility] Last Admin: 05/26/17 13:39 Dose: Not Given Fenofibrate (Tricor) 48 mg PO DAILY [facility] Last Admin: 05/26/17 13:40 Dose: Not Given Metronidazole (Flagyl) 500 mg in 100 mls @ 100 mls/hr IVPB Q8 [facility] PRN Reason: Protocol Last Admin: 05/26/17 11:55 Dose: Not Given Piperacillin Sod/Tazobactam Sod (Zosyn 3.375 In Ns 100ml) 100 mls @ 200 mls/hr IVPB Q8H [facility] PRN Reason: Protocol Stop: 06/02/17 08:14 Last Admin: 05/26/17 11:57 Dose: Not Given Sodium Chloride (Sodium Chloride 0.9%) 1,000 mls @ 100 mls/hr IV .Q10H [facility] Iron Sucrose 200 mg/ Sodium (Chloride) 110 mls @ 110 mls/hr IVPB DAILY [facility] Stop: 05/28/17 10:59 Levalbuterol HCl (Xopenex) 1.25 mg IH [id number] [facility] Last Admin: 05/26/17 07:45 Dose: 1.25 mg Metoprolol Tartrate (Lopressor) 25 mg PO DAILY [facility] Last Admin: 05/26/17 13:39 Dose: Not Given Dutasteride [Avodart (] 0.5 Mg) 0.5 mg PO DAILY [facility] Last Admin: 05/26/17 13:39 Dose: Not Given Pantoprazole Sodium (Protonix Inj) 40 mg IVP Q12 [facility] Last Admin: 05/26/17 13:40 Dose: Not Given Tamsulosin HCl (Flomax) 0.4 mg PO DAILY [facility] Last Admin: 05/26/17 13:39 Dose: Not Given Tiotropium [place] (Spiriva) 18 mcg INH DAILY [facility] Last Admin: 05/26/17 13:40 Dose: Not Given - Labs Labs: 05/26/17 07:00 05/26/17 07:00 PT 13.5 Seconds (9.9-11.8) H 05/26/17 07:00 INR 1.25 (0.93-1.08) H 05/26/17 07:00 APTT 23.8 Seconds (23.7-30.8) 05/26/17 07:00 - Constitutional Appears: Non-toxic, No Acute Distress - Head Exam Head Exam: ATRAUMATIC, NORMAL INSPECTION, NORMOCEPHALIC - Eye Exam Eye Exam: EOMI, Periorbital swelling - ENT Exam ENT Exam: Normal Exam - Neck Exam Neck Exam: Full ROM, Normal Inspection - Cardiovascular Exam Cardiovascular Exam: REGULAR RHYTHM - GI/Abdominal Exam GI & Abdominal Exam: Soft, Normal Bowel Sounds - Rectal Exam Rectal Exam: Bloody Stool - Extremities Exam Extremities Exam: Normal Capillary Refill, Normal Inspection - Back Exam Back Exam: NORMAL INSPECTION - Neurological Exam Neurological Exam: Alert, Awake, CN II-XII Intact, Normal Gait, Oriented x3 Neuro motor strength exam: Left Upper Extremity: 5, Right Upper Extremity: 5, Left Lower Extremity: 5, Right Lower Extremity: 5 - Psychiatric Exam Psychiatric exam: Normal Affect, Normal Mood - Skin Skin Exam: Abrasion Additional comments: LEFT UPPER EYELID PUFFINESS/LACERATION Assessment and Plan - Assessment and Plan (Free Text) Assessment: A/P; SYNCOPE ETIOLOGY UNDETERMINED LGIB ACUTE BLOOD LOSS ANEMIA S/P COLONSCOPY SIGMOID AND 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 PLAN PER ORDERS ALL DETAILS EXPLAINED TO PATIENT AND AT LENGTH, ALL QUESTIONS AND CONCERNED ANSWERED. WILL AWAIT RESULTS OF FURTHER DIAGNOSTICS TESTING AND CARDIOLOGY, NEUROLOGY AND GI RECOMMENDATIONS. 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 HYPOALBUMINEMIA PROTEIN MALNUTRITION. VENOUS STASIS LEG-=RESOLVED COPD/EMPHYSEMA HX FATIGUE PLAN PER ORDERS ALL DETAILS EXPLAINED TO PATIENT AT LENGTH, ALL QUESTIONS AND CONCERNED ANSWERED. WILL AWAIT RESULTS OF FURTHER DIAGNOSTICS TESTING AND CARDIOLOGY, NEUROLOGY AND GI RECOMMENDATIONS.
--- NOTE | 2017-05-27 10:34 | CP.PCM.CON ---
Past Patient History - Past Social History Smoking Status: Former Smoker - CARDIAC Hx Cardiac Disorders: Yes Hx Cardia Arrhythmia: Yes (a fib) Hx Hypertension: Yes Hx Pacemaker: Yes Hx Peripheral Edema: Yes (ble +1) - PULMONARY Hx Respiratory Disorders: Yes Hx Chronic Obstructive Pulmonary Disease (COPD): Yes (home o2) Hx Emphysema: Yes - NEUROLOGICAL Hx Neurological Disorder: No - HEENT Hx HEENT Problems: No - RENAL Hx Chronic Kidney Disease: No - ENDOCRINE/METABOLIC Hx Endocrine Disorders: No - HEMATOLOGICAL/ONCOLOGICAL Hx Cancer: Yes (colon ca dx 2000/colon resection) - INTEGUMENTARY Other/Comment: laceration left eyelid - MUSCULOSKELETAL/RHEUMATOLOGICAL Hx Musculoskeletal Disorders: Yes (joint pain) Hx Falls: Yes (syncopal episode today fell hit head) - GASTROINTESTINAL Hx Gastrointestinal Disorders: Yes - GENITOURINARY/GYNECOLOGICAL Hx Prostate Problems: Yes (enlarged on flomax) - PSYCHIATRIC Hx Psychophysiologic Disorder: No Hx Substance Use: No - SURGICAL HISTORY Hx Cardiac Catheterization: Yes Hx Coronary Stent: Yes Other/Comment: colon resection/colonoscopy 4 days ago polyps found and removed, abd hernia repair Meds Allergies/Adverse Reactions: Allergies Allergy/AdvReac Type Severity Reaction Status Date / Time No Known Allergies Allergy Verified 05/25/17 10:55 - Medications Medications: Current Medications Arformoterol Tartrate (Brovana) 15 mcg IH [id number] [facility] Last Admin: 05/27/17 07:13 Dose: 15 mcg Atorvastatin Calcium (Lipitor) 20 mg PO DAILY [facility] Last Admin: 05/27/17 09:16 Dose: 20 mg Budesonide (Pulmicort Respules) 0.25 mg IH BIDRESP [facility] Last Admin: 05/27/17 07:13 Dose: 0.25 mg Cyanocobalamin (Vitamin B12 1000 Mcg/Ml Inj) 1,000 mcg IM DAILY [facility] Stop: 06/04/17 10:01 Last Admin: 05/27/17 09:15 Dose: 1,000 mcg Digoxin (Lanoxin) 0.25 mg PO DAILY [facility] Last Admin: 05/27/17 09:16 Dose: 0.25 mg Diphenhydramine HCl (Benadryl) 25 mg IVP Q12 [facility] Stop: 05/27/17 22:01 Fenofibrate (Tricor) 48 mg PO DAILY [facility] Last Admin: 05/27/17 09:17 Dose: 48 mg Furosemide (Lasix) 40 mg IVP Q12 [facility] Stop: 05/27/17 22:01 Metronidazole (Flagyl) 500 mg in 100 mls @ 100 mls/hr IVPB Q8 [facility] PRN Reason: Protocol Last Admin: 05/27/17 05:31 Dose: 100 mls/hr Piperacillin Sod/Tazobactam Sod (Zosyn 3.375 In Ns 100ml) 100 mls @ 200 mls/hr IVPB Q8H [facility] PRN Reason: Protocol Stop: 06/02/17 08:14 Last Admin: 05/27/17 08:24 Dose: 200 mls/hr Sodium Chloride (Sodium Chloride 0.9%) 1,000 mls @ 100 mls/hr IV .Q10H [facility] Last Admin: 05/26/17 21:37 Dose: 100 mls/hr Iron Sucrose 200 mg/ Sodium (Chloride) 110 mls @ 110 mls/hr IVPB DAILY [facility] Stop: 05/28/17 10:59 Last Admin: 05/27/17 09:14 Dose: 110 mls/hr Levalbuterol HCl (Xopenex) 1.25 mg IH [id number] [facility] Last Admin: 05/27/17 07:13 Dose: 1.25 mg Metoprolol Tartrate (Lopressor) 25 mg PO DAILY [facility] Last Admin: 05/27/17 09:15 Dose: 25 mg Dutasteride [Avodart (] 0.5 Mg) 0.5 mg PO DAILY [facility] Last Admin: 05/27/17 09:17 Dose: Not Given Pantoprazole Sodium (Protonix Inj) 40 mg IVP Q12 [facility] Last Admin: 05/27/17 09:14 Dose: 40 mg Tamsulosin HCl (Flomax) 0.4 mg PO DAILY [facility] Last Admin: 05/27/17 09:17 Dose: 0.4 mg Tiotropium [place] (Spiriva) 18 mcg INH DAILY [facility] Last Admin: 05/27/17 09:17 Dose: 18 mcg Results - Vital Signs Recent Vital Signs: Last Vital Signs Temp 97.9 F 05/27/17 06:00 Pulse 67 05/27/17 09:15 Resp 20 05/27/17 06:00 BP 112/61 05/27/17 09:15 Pulse Ox 94 L 05/27/17 06:00 - Labs Result Diagrams: 05/27/17 05:36 05/27/17 05:30 Labs: Laboratory Results - last 24 hr 05/26/17 05/26/17 05/26/17 08:00 08:00 08:00 WBC RBC Hgb Hct MCV MCH MCHC RDW Plt Count MPV Gran % Lymph % (Auto) Posey % (Auto) Eos % (Auto) Baso % (Auto) Gran # Lymph # Posey # Eos # Baso # Sodium Potassium Chloride Carbon Dioxide Anion Gap BUN Creatinine Est GFR ( Amer) Est GFR (Non-Af Amer) Random Glucose Calcium Magnesium Ferritin 67.7 Total Bilirubin Direct Bilirubin AST ALT Alkaline Phosphatase Total Protein Albumin Globulin Albumin/Globulin Ratio Vitamin B12 216 L Folate > 20.0 Procalcitonin 0.05 L RPR Nonreactive 05/26/17 05/27/17 05/27/17 18:05 05:30 05:36 WBC 11.8 H 9.5 RBC 3.33 L 2.91 L Hgb 10.1 L 8.8 L Hct 29.3 L 25.6 L MCV 88.0 88.0 MCH 30.3 30.2 MCHC 34.5 34.4 RDW 13.9 14.3 Plt Count 177 183 MPV 9.0 9.0 Gran % 78.3 H Lymph % (Auto) 12.6 L Posey % (Auto) 5.9 Eos % (Auto) 2.9 Baso % (Auto) 0.3 Gran # 7.43 H Lymph # 1.2 Posey # 0.6 Eos # 0.3 Baso # 0.03 Sodium 140 Potassium 4.1 Chloride 110 H Carbon Dioxide 27 Anion Gap 7 L BUN 10 Creatinine 0.9 Est GFR ( Amer) > 60 Est GFR (Non-Af Amer) > 60 Random Glucose 80 Calcium 7.7 L Magnesium 2.2 Ferritin Total Bilirubin 0.7 Direct Bilirubin 0.1 AST 20 ALT 26 Alkaline Phosphatase 26 L Total Protein 4.4 L Albumin 2.3 L Globulin 2.2 Albumin/Globulin Ratio 1.0 L Vitamin B12 Folate Procalcitonin RPR Assessment & Plan - Assessment and Plan (Free Text) Assessment: Consult written system down cannot dictate, Syncope like;ly secondary to hypotension/ R/o Cardiac arrythmia vs seizure. EEG Cardia [id number]
--- NOTE | 2017-05-27 12:40 | CP.PCM.CON ---
History of Present Illness - History of Present Illness History of Present Illness: Cardiology consult 05/26/17 The patient is a 71 yr old male who presents with syncope associated with GI bleed HPI pt has hx of ICD placement due to poor LV function. Hx of old ASMI with PCI Recent EST with his exercise manager was reported as unremarkable with improved LV function Neg DM, no hypertension, Pos hypercholesteremia SH denies smoking ROS: 14 point ROS reveals no angina, SOB, nor edema. No other cardiac sx's noted PE BP 114/61 HR 65 neck: neg JVD lungs: clear to auscultation cor: s1s2 without m ext: c/c/e LABS: EKG paced neg trop, hct noted Impressions: Syncope No evidence for cardiac etiology Hx of ASMI CAD Hx of PCI S/P ICD Plan: fu Hgb serial trops ICD check ECHO Past Patient History - Past Social History Smoking Status: Former Smoker - CARDIAC Hx Cardiac Disorders: Yes Hx Cardia Arrhythmia: Yes (a fib) Hx Hypertension: Yes Hx Pacemaker: Yes Hx Peripheral Edema: Yes (ble +1) - PULMONARY Hx Respiratory Disorders: Yes Hx Chronic Obstructive Pulmonary Disease (COPD): Yes (home o2) Hx Emphysema: Yes - NEUROLOGICAL Hx Neurological Disorder: No - HEENT Hx HEENT Problems: No - RENAL Hx Chronic Kidney Disease: No - ENDOCRINE/METABOLIC Hx Endocrine Disorders: No - HEMATOLOGICAL/ONCOLOGICAL Hx Cancer: Yes (colon ca dx 2000/colon resection) - INTEGUMENTARY Other/Comment: laceration left eyelid - MUSCULOSKELETAL/RHEUMATOLOGICAL Hx Musculoskeletal Disorders: Yes (joint pain) Hx Falls: Yes (syncopal episode today fell hit head) - GASTROINTESTINAL Hx Gastrointestinal Disorders: Yes - GENITOURINARY/GYNECOLOGICAL Hx Prostate Problems: Yes (enlarged on flomax) - PSYCHIATRIC Hx Psychophysiologic Disorder: No Hx Substance Use: No - SURGICAL HISTORY Hx Cardiac Catheterization: Yes Hx Coronary Stent: Yes Other/Comment: colon resection/colonoscopy 4 days ago polyps found and removed, abd hernia repair Meds Allergies/Adverse Reactions: Allergies Allergy/AdvReac Type Severity Reaction Status Date / Time No Known Allergies Allergy Verified 05/25/17 10:55 - Medications Medications: Current Medications Arformoterol Tartrate (Brovana) 15 mcg IH [id number] [facility] Last Admin: 05/27/17 07:13 Dose: 15 mcg Atorvastatin Calcium (Lipitor) 20 mg PO DAILY [facility] Last Admin: 05/27/17 09:16 Dose: 20 mg Budesonide (Pulmicort Respules) 0.25 mg IH BIDRESP [facility] Last Admin: 05/27/17 07:13 Dose: 0.25 mg Cyanocobalamin (Vitamin B12 1000 Mcg/Ml Inj) 1,000 mcg IM DAILY [facility] Stop: 06/04/17 10:01 Last Admin: 05/27/17 09:15 Dose: 1,000 mcg Digoxin (Lanoxin) 0.25 mg PO DAILY [facility] Last Admin: 05/27/17 09:16 Dose: 0.25 mg Diphenhydramine HCl (Benadryl) 25 mg IVP Q12 [facility] Stop: 05/27/17 22:01 Fenofibrate (Tricor) 48 mg PO DAILY [facility] Last Admin: 05/27/17 09:17 Dose: 48 mg Furosemide (Lasix) 40 mg IVP Q12 [facility] Stop: 05/27/17 22:01 Metronidazole (Flagyl) 500 mg in 100 mls @ 100 mls/hr IVPB Q8 [facility] PRN Reason: Protocol Last Admin: 05/27/17 05:31 Dose: 100 mls/hr Piperacillin Sod/Tazobactam Sod (Zosyn 3.375 In Ns 100ml) 100 mls @ 200 mls/hr IVPB Q8H [facility] PRN Reason: Protocol Stop: 06/02/17 08:14 Last Admin: 05/27/17 08:24 Dose: 200 mls/hr Sodium Chloride (Sodium Chloride 0.9%) 1,000 mls @ 100 mls/hr IV .Q10H [facility] Last Admin: 05/26/17 21:37 Dose: 100 mls/hr Iron Sucrose 200 mg/ Sodium (Chloride) 110 mls @ 110 mls/hr IVPB DAILY [facility] Stop: 05/28/17 10:59 Last Admin: 05/27/17 09:14 Dose: 110 mls/hr Levalbuterol HCl (Xopenex) 1.25 mg IH [id number] [facility] Last Admin: 05/27/17 07:13 Dose: 1.25 mg Metoprolol Tartrate (Lopressor) 25 mg PO DAILY [facility] Last Admin: 05/27/17 09:15 Dose: 25 mg Dutasteride [Avodart (] 0.5 Mg) 0.5 mg PO DAILY [facility] Last Admin: 05/27/17 09:17 Dose: Not Given Pantoprazole Sodium (Protonix Inj) 40 mg IVP Q12 [facility] Last Admin: 05/27/17 09:14 Dose: 40 mg Tamsulosin HCl (Flomax) 0.4 mg PO DAILY [facility] Last Admin: 05/27/17 09:17 Dose: 0.4 mg Tiotropium [place] (Spiriva) 18 mcg INH DAILY [facility] Last Admin: 05/27/17 09:17 Dose: 18 mcg Results - Vital Signs Recent Vital Signs: Last Vital Signs Temp 98.4 F 05/27/17 12:00 Pulse 63 05/27/17 12:00 Resp 18 05/27/17 12:00 BP 118/53 L 05/27/17 12:00 Pulse Ox 94 L 05/27/17 06:00 - Labs Result Diagrams: 05/27/17 05:36 05/27/17 05:30 Labs: Laboratory Results - last 24 hr 05/26/17 05/26/17 05/26/17 08:00 08:00 18:05 WBC 11.8 H RBC 3.33 L Hgb 10.1 L Hct 29.3 L MCV 88.0 MCH 30.3 MCHC 34.5 RDW 13.9 Plt Count 177 MPV 9.0 Gran % Lymph % (Auto) [place] % (Auto) Eos % (Auto) Baso % (Auto) Gran # Lymph # [place] # Eos # Baso # Sodium Potassium Chloride Carbon Dioxide Anion Gap BUN Creatinine Est GFR ( Amer) Est GFR (Non-Af Amer) Random Glucose Calcium Magnesium Total Bilirubin Direct Bilirubin AST ALT Alkaline Phosphatase Total Protein Albumin Globulin Albumin/Globulin Ratio Vitamin B12 216 L Folate > 20.0 RPR Nonreactive 05/27/17 05/27/17 05:30 05:36 WBC 9.5 RBC 2.91 L Hgb 8.8 L Hct 25.6 L MCV 88.0 MCH 30.2 MCHC 34.4 RDW 14.3 Plt Count 183 MPV 9.0 Gran % 78.3 H Lymph % (Auto) 12.6 L [place] % (Auto) 5.9 Eos % (Auto) 2.9 Baso % (Auto) 0.3 Gran # 7.43 H Lymph # 1.2 [place] # 0.6 Eos # 0.3 Baso # 0.03 Sodium 140 Potassium 4.1 Chloride 110 H Carbon Dioxide 27 Anion Gap 7 L BUN 10 Creatinine 0.9 Est GFR ( Amer) > 60 Est GFR (Non-Af Amer) > 60 Random Glucose 80 Calcium 7.7 L Magnesium 2.2 Total Bilirubin 0.7 Direct Bilirubin 0.1 AST 20 ALT 26 Alkaline Phosphatase 26 L Total Protein 4.4 L Albumin 2.3 L Globulin 2.2 Albumin/Globulin Ratio 1.0 L Vitamin B12 Folate RPR
--- NOTE | 2017-05-27 13:29 | CT ---
PROCEDURE: CT Chest without contrast HISTORY: abnormal cxr COMPARISON: None. TECHNIQUE: Contiguous axial images were obtained through the chest without intravenous contrast enhancement. Sagittal and coronal reconstructions were performed. Radiation dose (DLP): 566 mGy-cm. This CT exam was performed using one or more of the following dose reduction techniques: Automated exposure control, adjustment of the mA and/or kV according to patient size, and/or use of iterative reconstruction technique. FINDINGS: LUNGS: Severe emphysema is seen bilaterally especially in the left upper lobe were there is a large bulla. There is nearly complete loss of lung markings in the left upper lobe. There is linear scarring in the right apex. MEDIASTINUM: Unremarkable thoracic aorta. No aneurysm. Normal sized heart. Main pulmonary artery unremarkable. No vascular congestion. No lymphadenopathy. PLEURA: No pleural fluid. No pneumothorax. BONES: No fracture. No destructive lesion. UPPER ABDOMEN: Grossly unremarkable. OTHER FINDINGS: Dual lead pacemaker. The report concurs with the preliminary [facility] report IMPRESSION: Severe emphysema especially in the left upper lobe
--- NOTE | 2017-05-27 14:53 | US ---
HISTORY: Leg pain and swelling. Evaluate for DVT PHYSICIAN(S): Jayro Irby MD. TECHNIQUE: Duplex sonography and color-flow Doppler with graded compression were used to evaluate the deep venous systems of both lower extremities. FINDINGS: The visualized deep venous systems of both lower extremities are sonographically normal and compressible. Normal wave forms and augmentation are seen. There is no sonographic evidence for deep venous thrombosis in the visualized segments of both lower extremities. IMPRESSION: No sonographic evidence for deep venous thrombosis in the visualized segments of both lower extremities.
--- NOTE | 2017-05-27 14:55 | US ---
PROCEDURE: Bilateral carotid artery duplex ultrasound HISTORY: Carotid stenosis PHYSICIAN(S): Jayro Irby MD. TECHNIQUE: Duplex sonography and color-flow Doppler were used to evaluate the carotid bifurcations and limited segments of the vertebral arteries bilaterally. FINDINGS: There is mild to moderate smooth heterogeneous plaque noted at the carotid bifurcations bilaterally. The peak systolic velocity in the proximal right internal carotid artery is 132 cm/sec. This corresponds to a 40-59 percent proximal right ICA stenosis. Normal systolic velocities are noted in the proximal right external carotid artery. There is antegrade flow in the right vertebral artery. The peak systolic velocity in the proximal left internal carotid artery is 101 cm/sec. This corresponds to a 20 to 39% proximal left ICA stenosis. Normal systolic velocities are noted in the proximal left external carotid artery. There is antegrade flow in the left vertebral artery. IMPRESSION: 1. 40-59 percent proximal right ICA stenosis. 2. 20 -39 percent proximal left ICA stenosis 3. Antegrade flow in both vertebral arteries
--- NOTE | 2017-05-27 15:21 | CARD ---
APPROVED REPORT EXAM: Two-dimensional and M-mode echocardiogram with Doppler and color Doppler. INDICATION Syncope 2D DIMENSIONS Left Atrium (2D)4.5 (1.6-4.0cm)IVSd1.0 (0.7-1.1cm) LVDd4.5 (3.9-5.9cm)PWd1.1 (0.7-1.1cm) LVDs3.3 (2.5-4.0cm)FS (%) 26.5 % LVEF (%)52.1 (>50%) M-Mode DIMENSIONS Aortic Root3.50 (2.2-3.7cm)Aortic Cusp Exc.1.70 (1.5-2.0cm) Aortic Valve AoV Peak Ezltleti564.0cm/Marcia Peak GR.8mmHg Mitral Valve MV E Psxnyrup89.8cm/sMV A Musyxymy28.9cm/sE/A ratio0.7 TDI Lateral E' Peak V8.29cm/sMedial E' Peak V8.29cm/sE/Lateral E'7.0 E/Medial E'7.0 Pulmonary Valve PV Peak Vlbhytcj33.8cm/sPV Peak Grad.1mmHg Tricuspid Valve TR Peak Amuseoew696al/sRAP [id number] Peak Gr.38mmHg [id number] LEFT VENTRICLE The left ventricle is normal size. There is normal left ventricular wall thickness. The left ventricular ejection fraction is within the normal range. Septal hypokinesis Transmitral Doppler flow pattern is Grade I-abnormal relaxation pattern. RIGHT VENTRICLE The right ventricle is normal size. There is normal right ventricular wall thickness. Systolic function is mildly to moderately reduced. There is a pacemaker lead in the right ventricle. ATRIA The left atrium is mildly dilated. The right atrium is mildly dilated. AORTIC VALVE The aortic valve is normal in structure. No aortic regurgitation is present. MITRAL VALVE The mitral valve is mildly thickened. There is no mitral valve regurgitation noted. TRICUSPID VALVE There is mild tricuspid regurgitation. There is mild to moderate pulmonary hypertension. GREAT VESSELS The aortic root is normal in size. The IVC is normal in size and collapses >50% with inspiration. PERICARDIAL EFFUSION There is a small loculated anterior pericardial effusion. <Conclusion> The left ventricle is normal size. There is normal left ventricular wall thickness. The left ventricular ejection fraction is within the normal range. Septal hypokinesis Transmitral Doppler flow pattern is Grade I-abnormal relaxation pattern. There is mild tricuspid regurgitation. There is mild to moderate pulmonary hypertension.
[2017-05-27] MEDS: DiphenhydrAMINE 50 mg/ml Inj IVP SCH ×2 (18:44→23:24)
[2017-05-28] MEDS: Levalbuterol 1.25 MG/3 ML Inhal Soln UD IH SCH ×2 (01:30→07:53)
[2017-05-28] MEDS: metroNIDAZOLE IV 500 mg/100 ml 500 MG/100 ML BAG IVPB SCH (05:53)
[2017-05-28 06:49] LABS: ADD MANUAL DIFF? NO
[2017-05-28 06:56] LABS: BASO # 0.05 K/mm3 (0.0-2.0); BASO % 0.5 % (0.0-3.0); EOS # 0.3 (0.0-0.7); EOS % 3.3 % (1.5-5.0); GRAN # 7.25 (1.4-6.5); GRAN % 70.9 % (50.0-68.0); LYMPH # 1.6 (1.2-3.4); LYMPH % 15.7 % (22.0-35.0); MEAN CELL VOLUME 87.8 fL (80.0-105.0); MEAN CORPUSCULAR HEMOGLOBIN 29.5 pg (25.0-35.0); MEAN CORPUSCULAR HGB CONC 33.5 g/dl (31.0-37.0); MEAN PLATELET VOLUME 9.3 fl (7.0-11.0); MONO % 9.6 % (1.0-6.0); PLATELET COUNT 193 10^3/uL (120.0-450.0); RED CELL DISTRIBUTION WIDTH 14.9 % (11.5-14.5); WHITE BLOOD COUNT 10.2 10^3/ul (4.5-11.0)
[2017-05-28 07:19] LABS: ALB/GLOB RATIO 1.2 (1.1-1.8); ALKALINE PHOSPHATASE 25 U/L (38-133); ALT/SGPT 39 U/L (7-56); AST/SGOT 38 U/L (15-59); BILIRUBIN,DIRECT 0.2 mg/dL (0.0-0.4); BILIRUBIN,TOTAL 0.7 mg/dL (0.2-1.3); BLOOD UREA NITROGEN 6 mg/dL (7-21); CALCIUM 8.2 mg/dL (8.4-10.5); CARBON DIOXIDE 26 mmol/L (21-33); CHLORIDE 108 mmol/L (98-107); GFR AFRICAN-AMERICAN > 60; GLUCOSE,RANDOM 97 mg/dL (70-110); MAGNESIUM 1.9 mg/dL (1.7-2.2); POTASSIUM 3.7 mmol/L (3.6-5.0); SODIUM 140 mmol/L (132-148); TOTAL PROTEIN 4.8 g/dL (5.8-8.3)
[2017-05-28 07:44] VITALS: RESP 18; TEMP 97.6; O2SAT 100
[2017-05-28] MEDS: Budesonide 0.25 mg/2 ml Inhal Susp UD IH SCH (07:53)
[2017-05-28] MEDS: Arformoterol 15 mcg/2 ml Inh Sol IH SCH (07:53)
--- NOTE | 2017-05-28 08:02 | CP.PCM.PN ---
Subjective - Date & Time of Evaluation Date of Evaluation: 05/28/17 Time of Evaluation: 07:15 - Subjective Subjective: (covering for Dr. Skinner) Patient is seen this morning. He is feeling better. He denies abdominal pain or bleeding. According to the nurse, however, patient had tarry stool last night. Objective - Vital Signs/Intake and Output Vital Signs (last 24 hours): Temp Pulse Resp BP Pulse Ox 97.6 F 70 18 129/69 100 05/28/17 07:30 05/28/17 07:30 05/28/17 07:30 05/28/17 07:30 05/28/17 07:30 Intake and Output: 05/28/17 05/28/17 06:59 18:59 Intake Total 2100 Output Total 1900 Balance 200 - Medications Medications: Current Medications Arformoterol Tartrate (Brovana) 15 mcg IH [id number] [facility] Last Admin: 05/27/17 19:49 Dose: 15 mcg Atorvastatin Calcium (Lipitor) 20 mg PO DAILY [facility] Last Admin: 05/27/17 09:16 Dose: 20 mg Budesonide (Pulmicort Respules) 0.25 mg IH BIDRESP [facility] Last Admin: 05/27/17 19:49 Dose: 0.25 mg Cyanocobalamin (Vitamin B12 1000 Mcg/Ml Inj) 1,000 mcg IM DAILY [facility] Stop: 06/04/17 10:01 Last Admin: 05/27/17 09:15 Dose: 1,000 mcg Digoxin (Lanoxin) 0.25 mg PO DAILY [facility] Last Admin: 05/27/17 09:16 Dose: 0.25 mg Fenofibrate (Tricor) 48 mg PO DAILY [facility] Last Admin: 05/27/17 09:17 Dose: 48 mg Metronidazole (Flagyl) 500 mg in 100 mls @ 100 mls/hr IVPB Q8 [facility] PRN Reason: Protocol Last Admin: 05/28/17 05:53 Dose: 100 mls/hr Piperacillin Sod/Tazobactam Sod (Zosyn 3.375 In Ns 100ml) 100 mls @ 200 mls/hr IVPB Q8H [id number] PRN Reason: Protocol Stop: 06/02/17 08:14 Last Admin: 05/27/17 22:47 Dose: 200 mls/hr Sodium Chloride (Sodium Chloride 0.9%) 1,000 mls @ 100 mls/hr IV .Q10H [facility] Last Admin: 05/26/17 21:37 Dose: 100 mls/hr Iron Sucrose 200 mg/ Sodium (Chloride) 110 mls @ 110 mls/hr IVPB DAILY [facility] Stop: 05/28/17 10:59 Last Admin: 05/27/17 09:14 Dose: 110 mls/hr Levalbuterol HCl (Xopenex) 1.25 mg IH [id number] [facility] Last Admin: 05/27/17 19:50 Dose: 1.25 mg Metoprolol Tartrate (Lopressor) 25 mg PO DAILY [facility] Last Admin: 05/27/17 09:15 Dose: 25 mg Dutasteride [Avodart (] 0.5 Mg) 0.5 mg PO DAILY [facility] Last Admin: 05/27/17 09:17 Dose: Not Given Pantoprazole Sodium (Protonix Inj) 40 mg IVP Q12 [facility] Last Admin: 05/27/17 21:39 Dose: 40 mg Tamsulosin HCl (Flomax) 0.4 mg PO DAILY [facility] Last Admin: 05/27/17 09:17 Dose: 0.4 mg Tiotropium [place] (Spiriva) 18 mcg INH DAILY [facility] Last Admin: 05/27/17 09:17 Dose: 18 mcg - Labs Labs: 05/28/17 06:30 05/28/17 06:30 PT 13.5 Seconds (9.9-11.8) H 05/26/17 07:00 INR 1.25 (0.93-1.08) H 05/26/17 07:00 APTT 23.8 Seconds (23.7-30.8) 05/26/17 07:00 - Constitutional Appears: No Acute Distress - Head Exam Head Exam: ATRAUMATIC, NORMOCEPHALIC - Respiratory Exam Respiratory Exam: Clear to Ausculation Bilateral, NORMAL BREATHING PATTERN - Cardiovascular Exam Cardiovascular Exam: +S1, +S2 - GI/Abdominal Exam GI & Abdominal Exam: Soft, Normal Bowel Sounds. absent: Tenderness - Neurological Exam Neurological Exam: Alert, Awake, Oriented x3 Assessment and Plan - Assessment and Plan (Free Text) Assessment: Syncope Acute anemia secondary to ascending colon solitary ulcer at previous polypectomy site AFib Bullous emphysema Plan: Patient is seen this morning and says he is feeling better. He denies blood in the stool, although the night nurse has reported tarry stools last night. Hemoglobin is improved to 10.4 Patient is currently on liquid diet. Advance diet as per GI.
[2017-05-28] MEDS: Piperacillin/Tazobact 3.375 gm 100 ML IVPB SCH (09:27)
[2017-05-28] MEDS: Digoxin 250 mcg (0.25 mg) Tab PO SCH (09:29)
[2017-05-28] MEDS: Tiotropium 18 mcg Cap For Inhalation INH SCH (09:29)
[2017-05-28 09:44] VITALS: BP 128/85; PULSE 75
[2017-05-28 14:23] LABS: PARIETAL CELL AB SCREEN Negative (Negative)
[2017-05-29] MEDS ORDERED: Pantoprazole 40 mg EC Tab PO SCH (16:00)
[2017-06-01 02:54] LABS: INTRINSIC FACTOR BLOCK AB Negative (Negative)
--- NOTE | 2017-06-22 01:24 | DS ---
The patient was cleared for discharge after the patient was seen by Dr. Armstrong and gastroenterology. The patient was cleared for discharge. The patient was discharged from 565, bed 1. FINAL IMPRESSION, PLAN AND DISCHARGE DIAGNOSES: 1. Status post syncope, etiology undermined. 2. Acute blood loss anemia. 3. Status post colonoscopy. 4. Sigmoid and ascending colon diverticulosis. 5. Ascending colon solitary ulcer at previous polypectomy site, site of bleeding. 6. Hypotension. 7. Hypomagnesemia. 8. 13. Abnormal gastrointestinal bleeding scan with abnormal activity in the hepatic flexure and pelvis. 9. Left upper lobe bullous lung disease and emphysema. 10. Oxygen dependent chronic obstructive pulmonary disease. 11. Leukocytosis with granulocytosis. 12. Normocytic anemia. 13. Status post bright red blood cell transfusion with acute blood loss anemia. 14. Iron deficiency anemia with decreased iron saturation. 15. Hyperbilirubinemia. 16. Protein malnutrition. 17. Vitamin B12 deficiency with Vitamin B12 level of 216. 18. Trace pyuria, bacteruria. 19. Coumadin dependent atrial fibrillation. 20. A positive blood type. 21. 40% to 59% proximal right internal carotid artery stenosis and 20% to 39% proximal left internal carotid artery stenosis. 22. Venostasis of the lower extremity. 23. Acute blood loss anemia. 24. Bilateral lower extremity venostasis. 25. Bilateral severe emphysema with large emphysematous bullae of the left upper lobe and complete loss of left upper lobe lung marking. 26. Status post automated implantable cardioverter-defibrillator implant. 27. Abnormal gastrointestinal bleeding scan with collectivity in the right upper quadrant of the abdomen in the hepatic flexure area with spread along the expected course of the hepatic flexure both proximally and distally with focal activity in the inferior pelvis. Questionable bladder activity versus hematuria versus sigmoid colon activity. 28. Left upper eyelid laceration (healing). 29. Left ventricular ejection fraction of 52% on echocardiogram with diastolic right-sided congestive heart failure with pulmonary arterial hypertension. 30. Elevated right ventricular systolic pressure of 48 mmHg. 31. Moderately reduced right ventricular systolic function. 32. Moderate pulmonary arterial hypertension. 33. Mild tricuspid regurgitation. 34. Septal hypokinesis. 35. Automated implantable cardioverter-defibrillator implant. 36. Status post syncope. 37. History of colon carcinoma. 38. History of multiple colon polyp. 39. History of recent colonoscopy. 40. History of polypectomy. 41. Status post polypectomy. 42. Syncope probably secondary to hypotension and acute blood loss anemia. 43. Lower gastrointestinal bleeding. SYNCOPE ETIOLOGY UNDETERMINED LGIB ACUTE BLOOD LOSS ANEMIA S/P COLONSCOPY SIGMOID AND 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 SYNCOPE ETIOLOGY UNDETERMINED LGIB ACUTE BLOOD LOSS ANEMIA S/P COLONSCOPY SIGMOID AND 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 HYPOALBUMINEMIA PROTEIN MALNUTRITION. VENOUS STASIS LEG-=RESOLVED COPD/EMPHYSEMA HX FATIGUE The patient was discharged after patient was cleared by gastroenterology, cardiology, and neurology. The patient was advised to followup with Dr. within [address] within 1 week. The patient was advised no Coumadin for 1 week as per gastroenterology. DISCHARGE MEDICATIONS: The patient is to resume on: 1. Avodart 0.5 mg daily. 2. Fenofibrate 54 of 50 gm mg daily. 3. Flomax 0.4 mg daily. 4. Digoxin 0.25 daily. 5. Lasix 40 mg once or twice a day. 6. Lopressor 25 mg daily. 7. Perforomist nebulizer 20 mcg twice a day. 8. Protonix 40 mg twice a day. 9. Pulmicort nebulizer 0.5 mg twice a day. 10. Zocor 40 mg daily. 11. Spiriva 18 mcg daily. 12. Vitamin B12 injection 1000 mcg 1-2 every week. 13. Patient was advised to hold Coumadin as per gastroenterology recommendation for 1 week. During this hospitalization, the patient was extensively explained about the details of his diagnoses, treatment plan, management plan, outpatient followup, further diagnostic therapeutic intervention and all details of patient's diagnoses, hospitalization, explained to the patient at length and all questions were answered. Time spent in the entire discharge management is more than 45 minutes. DICTATED AND ELECTRONICALLY SIGNED NOT READ. Kevon Skinner MD cc: [facility] # [id number]
--- NOTE | 2017-06-22 11:31 | HP ---
DATE: 05/25/2017 HISTORY OF PRESENT ILLNESS: The patient is a 71-year old white male who presented to the emergency room at [facility] with complaints of bright red bleeding blood per rectum over the weekend starting of the past weekend which was two days ago. The patient also stated that he felt dizzy and had a syncopal episode with loss of consciousness. In addition, the patient came to the emergency room with bright red per rectum for 3 days and also complained of period of syncopal episode. The patient recently few days ago underwent colonoscopy by Dr. Avendano and the patient had a polypectomy done. The patient's Coumadin was held for colonoscopy. 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 The patient also complained of bright red blood per rectum, generalized weakness,lightheadedness, dizziness and loss of consciousness, which ended up in laceration of the left eyelid. 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 PAST MEDICAL HISTORY: Significant for: 1. Coumadin dependent atrial fibrillation. 2. History of prostatic hypertrophy. 3. History of dyslipidemia. 4. History of questionable diastolic right-sided congestive heart failure. 5. 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 6. History of AICD implant. 7. History of Coumadin-dependent atrial fibrillation. 8. History of coronary artery disease. 9. History of coronary angioplasty. 10. History of venous stasis of the lower extremity. 11. History of prostatic hypertrophy. 12. History of social alcohol use. 13. History of chronic obstructive pulmonary disease, oxygen dependent. 14. History of colon carcinoma with colon resection in 2000. CODE STATUS: FULL CODE. LIVING WILL ADVANCED DIRECTIVE: None. ALLERGIES: NONE. HEIGHT: Height is 5 feet 8. WEIGHT: Weight is 179. BMI: 27.4. HOME MEDICATIONS: 1. Spiriva. 2. Flomax. 3. Simvastatin. 4. Lopressor. 5. Lasix. 6. Perforomist. 7. Fenofibrate. 8. Avodart. 9. Digoxin. 10. Pulmicort. 11. Protonix. PHYSICAL EXAMINATION: VITAL SIGNS: T-max is 97.5 and heart rate of 85, 80, 87 and 81. Blood pressure of 104/66, 110/72 and 131/66 and O2 saturation of 100%, 96%on oxygen. GENERAL: The patient is seen lying in the bed. HEAD: Normocephalic and atraumatic. HEENT: Shows pinkish pale conjunctivae. Dry oral mucosa. NECK: No neck rigidity. CHEST: Kyphosis positive. Positive left upper chest pacemaker defibrillator noted. Positive rhonchi and occasional wheezing bilaterally. CARDIOVASCULAR: S1 and S2, Irregular rhythm. Positive systolic murmur right second intercostal space of the left sternal border. ABDOMEN: Soft and positive bowel sound. Mild epigastric periumbilical tenderness and no rebound tenderness. RECTAL: Guaiac positive. GENITALIA: Male. EXTREMITIES: Shows positive swelling of the lower extremity. MUSCULOSKELETAL: Examination shows a body mas index of 27.4. NEUROLOGIC: Cranial nerve II through XII intact. DIAGNOSTIC STUDIES: WBC of 15.2, hemoglobin and hematocrit of 11.4 and 33.7, platelets of 227, and granulocytes of 81. PT and PTT was 14.8 and 24.9. Sodium is 137, potassium is 4.1, chloride is 103, CO2 is 28, anion gap is 10, BUN is 21, and creatinine is 1.0. GFR is greater than 60, glucose is 123, and calcium is 9.1. LFTs are normal. Cholesterol is 119, triglyceride is 129, LDL is 78, and HDL is 26. PSA is 1.8. Urine pH is 6.0, urine trace leukocyte and bacteria many. Digoxin level is 0.4. Blood type A positive. The patient's chest x-rays was done in the emergency room which shows left upper lobe emphysema and emphysematous bullae. The patient had a CT head done. The patient had a CAT scan of head done for evaluation of syncope. The left upper eyelid laceration which was negative for any pathology. The patient was sent for a stat GI bleeding scan as per Dr. Avendano's recommendation which shows increase activity in the hepatic flexure of the colon with abnormal activity in the pelvis corresponding to the bladder activity versus rectosigmoid. EKG done in the emergency room shows paced rhythm. The patient was seen and evaluated by emergency room physician, Dr. Bolton. The patient was treated in the emergency room by Dr. Bolton. The patient was also in the ER, the patient's AICD was integrated by the [employer] which of the integration does not reveal any ventricular arrhythmias. The patient was evaluated in the emergency room. The patient was advised to be admitted to be in the hospital. IMPRESSION AND PLAN: 1. Status post syncope. 2. Bright red blood per rectum probably secondary to acute blood loss anemia. 3. Dizziness. 4. End-stage oxygen dependent chronic obstructive pulmonary disease. 5. History of Coumadin dependent atrial fibrillation. 6. Status post automated implantable cardioverter-defibrillator implant. 7. History of hypertension. 8. History of balloon carcinoma. 9. Status post recent colonoscopy with polypectomy. 10. Leukocytosis with granulocytosis. 11. Normocytic anemia. 12. Pyuria, bacteruria. 13. 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 14. Abnormal gastrointestinal bleeding scan with increase activity in the right upper quadrant of the abdomen lightly hepatic flexure of the colon with spread along the course of the hepatic flexure both proximally and distally with focal activity in the inferior pelvis with expected location of the bladder or rectal sigmoid. PLAN: At this time, the patient is to be admitted to be on [facility], gastroenterology consultation has been ordered, serial cardiac enzyme, serial labs have been ordered,and neurology consultation has been ordered. The patient's Coumadin at this time will be held, serial hemoglobin and hematocrit will be ordered. The patient may require transfusion of PRBCs if the patient's bleeding continues and if hemoglobin drops. The patient has been updated about his condition, diagnoses, treatment plan, need for hospitalization, need for further diagnostic therapeutic intervention was explained to the patient and the patient's at length and all questions and concerns were answered, which they acknowledged understood. The patient's home medications as per . Dictated and electronically signed, not read. Signing off Kevon Skinner MD Kevon Skinner MD
--- NOTE | 2017-06-25 04:02 | EEG ---
DATE: 05/27/2017 INTRODUCTION: This is a digital quality EEG monitoring using standard EEG montages. Background rhythm EEG shows a background activity of 8 to 9 Hz alpha activity in the parietooccipital region. The EEG activity is bilaterally symmetrical and synchronous. There is attenuation of the background activity on awakening. Abnormal potentials *------*. Photic stimulation and hyperventilation. Photic stimulation did not reveal any abnormality. Hyperventilation was not performed. IMPRESSION: Normal EEG. No epileptiform activity seen in this EEG recording. Gen Escoto MD
== END 2017-05-28 13:47 | disposition home or self-care (01) | DRG 920 ==
LOC: ED 10:49 → ERH 14:44 → 2RNO 18:34 → 5RNO 05-27 17:27 → OBSVTOIN 05-27 17:53
PROVIDERS: ADMIT Internal Medicine; ATTEND Internal Medicine
PROC: 4B02XTZ Measurement of Cardiac Defibrillator, External Approach (ICD-10-PCS; 2017-05-25)
PROC: 0W3P8ZZ Control Bleeding in Gastrointestinal Tract, Via Natural or Artificial Opening Endoscopic (ICD-10-PCS; principal; 2017-05-26 11:00)
PROC: 30233N1 Transfusion of Nonautologous Red Blood Cells into Peripheral Vein, Percutaneous Approach (ICD-10-PCS; 2017-05-26 11:00)
DX: K91.840 Postprocedural hemorrhage of a digestive system organ or structure following a digestive system procedure (principal); K63.3 Ulcer of intestine; I95.9 Hypotension, unspecified; I48.91 Unspecified atrial fibrillation; Z99.81 Dependence on supplemental oxygen; J44.9 Chronic obstructive pulmonary disease, unspecified; E83.42 Hypomagnesemia; D62 Acute posthemorrhagic anemia; I10 Essential (primary) hypertension; M54.9 Dorsalgia, unspecified; K57.30 Diverticulosis of large intestine without perforation or abscess without bleeding; S01.112A Laceration without foreign body of left eyelid and periocular area, initial encounter; W19.XXXA Unspecified fall, initial encounter; E53.8 Deficiency of other specified B group vitamins; R55 Syncope and collapse; Z79.01 Long term (current) use of anticoagulants; Y93.9 Activity, unspecified; Y92.9 Unspecified place or not applicable; Z85.038 Personal history of other malignant neoplasm of large intestine; Z95.810 Presence of automatic (implantable) cardiac defibrillator; I25.2 Old myocardial infarction; Z87.891 Personal history of nicotine dependence; Z95.5 Presence of coronary angioplasty implant and graft; Y92.009 Unspecified place in unspecified non-institutional (private) residence as the place of occurrence of the external cause; Y84.8 Other medical procedures as the cause of abnormal reaction of the patient, or of later complication, without mention of misadventure at the time of the procedure